=== PATIENT | male | born 1955 | race Caucasian/White ===

== ENCOUNTER 2020-10-11 13:10 | Emergency (ER) | payer MEDICARE, SELFPAY ==
[2020-10-11 13:24] VITALS: BP 154/97; PULSE 104; RESP 16; TEMP 36.5; O2SAT 97; BMI 26.2
[2020-10-11 13:31] VITALS: BP 136/88; PULSE 98; RESP 16; O2SAT 97
--- NOTE | 2020-10-11 13:47 | XR_ITS ---
WS: [id number] LEFT SHOULDER: 3 VIEW(S) TECHNIQUE: Internal and external rotation with Y view. HISTORY: injury/pain COMPARISON: None available. No fracture or dislocation or soft tissue abnormality. Suboptimal lateral evaluation of the scapula. There is a lucency through the glenoid which may be deg enerative or nondisplaced fracture. There is a small osteophyte from the superior surface of the acro mion. XR/XR shoulder LT min 2V* [id number] IMPRESSION: No definite LEFT shoulder fracture. Mild narrowing of the glenohumeral joint. Lucency through the glenoid. If patient continues with pain consider follow-up CT evaluation.
--- NOTE | 2020-10-11 13:57 | W.ED.UPPEXIN ---
HPI - Extremity Injury (Upper) General: Chief Complaint: Extremity Injury, Upper Stated Complaint: Sharp pain in LT shoulder Time Seen by Provider: 10/11/20 13:45 Source: patient Mode of arrival: ambulatory Limitations: no limitations History of Present Illness: HPI narrative: Patient is a nice 65-year-old male who presents to ED today with a complaint of left shoulder pain. Patient tells me he accidentally tripped and caught himself with his left arm. He states he jammed his left shoulder. He has no other complaints or injuries sustained during the event. He states he was seen by his chiropractor and told that he possibly tore his rotator cuff. complaint: injury to: left and shoulder Onset (ago): hour(s) Other Extremity Injury: Left: shoulder Other injuries: none Place: home Severity: moderate Relieving factors: immobilization Exacerbating factors: movement of extremity Context: fall Associated symptoms: Reports no associated symptoms; Denies neck pain Review of Systems Const: Denies: fever(s) Eyes: Denies: change in vision Card: Denies: chest pain Resp: Denies: dyspnea Musc: Reports: joint pain (L shoulder ) and limited range of motion; Denies: neck pain, back pain, extremity pain, extremity swelling or joint swelling Neuro: Denies: numbness in extremities or sensory changes Physical Exam Const: COMMON NORMALS: no acute distress, average body habitus, patient oriented x3, no limitations, healthy appearing, alert and well nourished GENERAL APPEARANCE: cooperative ORIENTATION/CONSCIOUSNESS: Yes awake, Yes oriented to person, Yes oriented to place and Yes oriented to time HENMT: COMMON NORMALS: normocephalic and atraumatic HEAD & SCALP: normocephalic and atraumatic Neck/C-Spine: COMMON NORMALS: full ROM CERVICAL SPINE: No pain with cervical ROM and No Cervical spine tenderness Extremity: GENERAL: Yes normal exam except as noted OTHER: no pain with palpation however pt has severe pain with any form of ROM; he has about 10 degrees of flexion/abduction; extremity is NV intact Neuro: COMMON NORMALS: patient oriented x3, moves all extremities, no focal motor deficits and no sensory deficits noted SENSORIUM/ORIENTATION: Yes alert, Yes oriented to person, Yes oriented to place and Yes oriented to time Skin: COMMON NORMALS: no rashes or lesions noted GENERAL SKIN EXAM: no rashes or lesions noted Course Vital Signs: Vital signs: Vital Signs Temperature 97.7 F 10/11/20 13:24 Pulse Rate 93 10/11/20 15:22 Respiratory Rate 16 10/11/20 15:22 Blood Pressure 149/79 10/11/20 15:22 Pulse Oximetry 97 10/11/20 15:22 MDM - Extremity Injury (Upper) MDM Narrative: Medical decision making narrative: XR showed questionable glenoid fx thus CT imaging obtained-this was normal. Will place in a sling and recommend followup with PCP. Imaging Data^: XR L shoulder: Radiologist's impression: [facility] [place] [address] XRay Report Signed Patient: Beto Grant Unit #: [id number] : 1955 Age/Sex: 65 / M ADM Date: 10/11/20 Loc: ER Room/Bed: Attending Dr: Ordering Provider/Ordering MD: Patricia Sarabia Date of Service: 10/11/20 Procedure(s): XR shoulder LT min 2V* [id number] Accession Number(s): [id number] Report Number: [id number] WS: [id number] LEFT SHOULDER: 3 VIEW(S) TECHNIQUE: Internal and external rotation with Y view. HISTORY: injury/pain COMPARISON: None available. No fracture or dislocation or soft tissue abnormality. Suboptimal lateral evaluation of the scapula. There is a lucency through the glenoid which may be degenerative or nondisplaced fracture. There is a small osteophyte from the superior surface of the acromion. XR/XR shoulder LT min 2V* [id number] IMPRESSION: No definite LEFT shoulder fracture. Mild narrowing of the glenohumeral joint. Lucency through the glenoid. If patient continues with pain consider follow-up CT evaluation. Dictated By: Luciana Araya DO Signed By: Luciana Araya DO Signed Date/Time: 10/11/20 1421 DD/ 1419 CT L shoulder: Radiologist's impression: [facility] [place] [address] CT Scan Report Signed Patient: Beto Grant [facility] [id number] [facility] 1955 [id number] Age/Sex: 65 / M ADM Date: 10/11/20 Loc: ER Room/Bed: Attending Dr: Ordering Provider/Ordering MD: Patricia Sarabia Date of Service: 10/11/20 Procedure(s): CT shoulder LT wo con* 02308 Accession Number(s): [id number] Report Number: [id number] WS: [id number] CT LEFT SHOULDER HISTORY: pain, decreased ROM, abnormal XR Technique: All CT scans at [facility] use at least one of these dose optimization techniques: automated exposure control; mA and/or kV adjustment per patient size (includes targeted exams where dose is matched to clinical indication); or iterative reconstruction. DLP: 2251.84 mGy.cm COMPARISON: Shoulder radiograph 10/11/2020. No acute fracture is identified. The glenoid is normal. Mild narrowing of the glenohumeral joint and AC joint. Tiny amount calcium in the distal rotator cuff. Visualized LEFT upper lobe is negative. No visualized rib fracture. CT/CT shoulder LT wo con* [id number] IMPRESSION: 1. No LEFT shoulder fracture. Negative glenoid. 2. Mild narrowing of the glenohumeral joint and AC joint from arthritis. Dictated By: Luciana Araya DO Signed By: Luciana Araya DO Signed Date/Time: 10/11/20 1507 DD/ 1504 Discharge Plan Discharge Patient Disposition: Home Clinical Impression: Injury of left shoulder Qualifiers: Encounter type: initial encounter Qualified Code(s): S49.92XA - Unspecified injury of left shoulder and upper arm, initial encounter Condition: Stable Prescriptions: New tramadol 50 mg tablet 50 mg PO Q6H PRN (Reason: pain) Qty: 14 RF: 0 No Action No Known Home Medications RF: 0 Discharge Orders: Discharge ED (Routine); Ordered 10/11/20 Ordered By: Patricia Sarabia Patient Instructions: Opioid Safety Activity Restrictions/Additional Instructions: [facility] is committed to fighting the nationwide opiate epidemic. We are providing ALL patients with information regarding opiate safety. If you received opiate pain medication during your stay or if you received a prescription for opiate pain medication-please review this handout. If not, you may disregard. Thank you. As we discussed please follow-up with your primary care provider in the next 1 to 2 weeks for re-evaluation. That evaluation may include an MRI, physical therapy, or continue with conservative measures. Coding Level of Care Code ED [employer] for [employer] Fwd Exam Detailed
--- NOTE | 2020-10-11 14:26 | CT_ITS ---
WS: [id number] CT LEFT SHOULDER HISTORY: pain, decreased ROM, abnormal XR Technique: All CT scans at [facility] use at least one of these dose optimization techniq ues: automated exposure control; mA and/or kV adjustment per patient size (includes targeted exams wh ere dose is matched to clinical indication); or iterative reconstruction. DLP: 2251.84 mGy.cm COMPARISON: Shoulder radiograph 10/11/2020. No acute fracture is identified. The glenoid is normal. Mild narrowing of the glenohumeral joint and AC joint. Tiny amount calcium in the distal rotator cuff. Visualized LEFT upper lobe is negative. No visualized rib fracture. CT/CT shoulder LT wo con* [id number] IMPRESSION: 1. No LEFT shoulder fracture. Negative glenoid. 2. Mild narrowing of the glenohumeral joint and AC joint from arthritis.
[2020-10-11 15:22] VITALS: BP 149/79; PULSE 93; RESP 16; O2SAT 97
== END 2020-10-11 15:27 | disposition home or self-care (01) ==
PROVIDERS: Emergency Provider Physician Assistant
DX: S49.92XA Unspecified injury of left shoulder and upper arm, initial encounter (principal); W18.40XA Slipping, tripping and stumbling without falling, unspecified, initial encounter
CPT/HCPCS: 73030; 73200; 99283